=== PATIENT | female | born 1950 | race Caucasian/White ===

== ENCOUNTER 2017-02-09 16:33 | Emergency (ER) | payer BC ==
[~2017-02-09] VITALS: Ht 162.6 cm; Wt 70.3 kg
[2017-02-09] MEDS ORDERED: TDAP DIPH,PERTUSS,TET VAC/PF 0.5 ML DISP.SYRIN IM ONE ×2 (17:30→17:39)
--- NOTE | 2017-02-09 17:34 | NUR ---
CLEAN RT HAND ABRASION PER MD REQUEST. NO BLEEDING NOTED.
[2017-02-09 17:49] VITALS: BP 117/73
== END 2017-02-09 17:50 | disposition home or self-care (01) ==
LOC: ER 16:33
DX: S60.511A Abrasion of right hand, initial encounter (principal); Z23 Encounter for immunization; E03.9 Hypothyroidism, unspecified; Z88.0 Allergy status to penicillin; Z85.3 Personal history of malignant neoplasm of breast; X18.XXXA Contact with other hot metals, initial encounter; Y93.89 Activity, other specified; Y92.9 Unspecified place or not applicable; Y99.9 Unspecified external cause status
CPT/HCPCS: 90715; A4663

== ENCOUNTER 2017-07-27 15:29 | Emergency (ER) | payer MEDICARE ==
[~2017-07-27] VITALS: Ht 154.9 cm; Wt 78.5 kg
[2017-07-27 17:27] LABS: CREATININE 0.7 mg/dL (0.6-1.3)
[2017-07-27 17:29] LABS: BASOPHILS % (AUTO) 0.3 % (0.0-2.0); EOSINOPHILS # (AUTO) 0.1 K/uL (0.0-0.7); EOSINOPHILS % (AUTO) 1.2 % (0.0-7.0); HEMATOCRIT 43.5 % (31.2-41.9); HEMOGLOBIN 14.7 g/dL (10.9-14.3); LYMPHOCYTES # (AUTO) 2.9 K/uL (20.0-40.0); LYMPHOCYTES % (AUTO) 29.8 % (20.5-51.5); MEAN CORPUSCULAR HEMOGLOBIN 30.2 uug (24.7-32.8); MEAN CORPUSCULAR HGB CONC 34 g/dL (32.3-35.6); MEAN CORPUSCULAR VOLUME 89.3 fL (75.5-95.3); MONOCYTES # (AUTO) 0.6 K/uL (2.0-10.0); MONOCYTES % (AUTO) 6.1 % (0.0-11.0); NEUTROPHILS % (AUTO) 62.6 % (38.5-71.5); PLATELET COUNT (AUTO) 200 K/uL (179-408); RED BLOOD CELL COUNT(AUTO) 4.86 MIL/uL (3.63-4.92); WHITE BLOOD COUNT (AUTO) 9.7 K/uL (3.8-11.8)
[2017-07-27 17:38] LABS: BILIRUBIN,DIRECT 0.1 mg/dL (0.0-0.2); BILIRUBIN,TOTAL 0.5 mg/dL (0.2-1.0)
--- NOTE | 2017-07-27 18:20 | NUR ---
MSE COMPLETED, PT D/C'D HOME, ACI/COPIES OF ALL TESTS AND CD COPY OF RADIOLOGY TESTS GIVEN. PT ASMBUL;ATED W/O DIFF/TOOK ALL BELONGINGS.
[2017-07-27 18:21] VITALS: BP 157/84
== END 2017-07-27 18:25 | disposition home or self-care (01) ==
LOC: ER 15:29
DX: S09.90XA Unspecified injury of head, initial encounter (principal); R00.2 Palpitations; F43.9 Reaction to severe stress, unspecified; E03.9 Hypothyroidism, unspecified; Z88.0 Allergy status to penicillin; W01.198A Fall on same level from slipping, tripping and stumbling with subsequent striking against other object, initial encounter; Y93.89 Activity, other specified; Y92.89 Other specified places as the place of occurrence of the external cause; Y99.8 Other external cause status
CPT/HCPCS: 36415; 70030-TC; 70450; 72125; 85025; 85730; 93005; A4663

== ENCOUNTER 2018-01-26 22:07 | Emergency (ER) | payer MEDICARE ==
[~2018-01-26] VITALS: Ht 154.9 cm; Wt 81.6 kg
--- NOTE | 2018-01-26 22:25 | NUR ---
Pt ambulates to ER with c/o head injury 5 hrs [employer] after shopping. Pt states she was reaching on the shelf and a foldable chair fell on her head. She denies any LOC, N/V. Pt is awake, alert, oriented x4. Able to speak in complete sentences. Speech clear. No acute distress noted.
--- NOTE | 2018-01-26 23:00 | NUR ---
Patient discharged to home in stable conditon. Written and verbal after care instructions given. Patient verbalizes understanding of instructions.
[2018-01-26 23:29] VITALS: BP 111/77
== END 2018-01-26 23:29 | disposition home or self-care (01) ==
LOC: ER 22:09
DX: S09.90XA Unspecified injury of head, initial encounter (principal); Z88.0 Allergy status to penicillin; W07.XXXA Fall from chair, initial encounter; Y93.89 Activity, other specified; Y92.89 Other specified places as the place of occurrence of the external cause; Y99.8 Other external cause status
CPT/HCPCS: A4663

== ENCOUNTER 2024-01-05 08:35 | Emergency (ER) | payer MEDICARE ==
[~2024-01-05] VITALS: Ht 162.6 cm; Wt 71.7 kg
[2024-01-05] MEDS ORDERED: TDAP DIPH,PERTUSS,TET VAC/PF 0.5 ML DISP.SYRIN IM ONE (09:39)
[2024-01-05] MEDS ORDERED: NEOMY/BACITRA/POLYMYXIN B OINT UD PACKET TP ONE (09:40)
[2024-01-05] MEDS: NEOMY/BACITRA/POLYMYXIN B OINT UD PACKET TP ONE (09:54)
[2024-01-05] MEDS: TDAP DIPH,PERTUSS,TET VAC/PF 0.5 ML DISP.SYRIN IM ONE (09:54)
[2024-01-05 09:56] VITALS: BP 145/82; O2SAT 99
== END 2024-01-05 09:55 | disposition home or self-care (01) ==
LOC: ER 08:35
DX: M79.671 Pain in right foot (principal); E03.9 Hypothyroidism, unspecified; Z98.890 Other specified postprocedural states; Z60.2 Problems related to living alone; Z88.0 Allergy status to penicillin
CPT/HCPCS: 73630; 90715; A4606; A4663